=== PATIENT | male | born 1990 | race Caucasian/White ===

== ENCOUNTER 2022-03-09 14:28 | Emergency (ER) | payer SELFPAY ==
[2022-03-09] MEDS ORDERED: dexAMETHasone 10 MG/ML VIAL ONE (14:54)
[2022-03-09] MEDS ORDERED: NA CHLORIDE 0.9% 1,000 ML ONE (14:54)
[2022-03-09 15:04] LABS: Absolute Lymphocytes (CBC) 2.3 K/uL (0.7-4.9); Hematocrit 41.9 % (39.6-49.0); Lymphocytes % 16.9 % (15.3-44.8); MCV 90.6 fL (80-100); MPV 7.8 fL (7.6-11.3); RBC Red Blood Cell Count 4.63 M/uL (4.33-5.43)
[2022-03-09 15:20] LABS: Potassium 3.6 mmol/L (3.5-5.1)
--- NOTE | 2022-03-09 15:51 | RAD REPORT ---
EXAM DESCRIPTION: CT - Soft Tissue Neck W/Contr - 03/09/2022 3:38 pm CLINICAL HISTORY: Neck pain with sore throat COMPARISON: None. TECHNIQUE: Computed axial tomography of the neck was obtained. 50 cc Isovue 300 was administered in travenously. Coronal and sagittal reconstruction was performed. All CT scans are performed using dose optimization technique as appropriate and may include automated exposure control or mA/KV adjustment according to patient size. FINDINGS: The right tonsil is enlarged. A contains a punctate calcification. Ill-defined low to inte rmediate density area within the right tonsil measures 2.5 centimeters. The oropharynx is shifted tow ards the left. The remainder of the pharynx, tongue base, larynx and subglottic trachea appear unremarkable The parotid, submandibular and thyroid glands appear unremarkable. Bilateral enlarged lymph nodes probably reactive in nature. No fluid within the sinuses/mastoids IMPRESSION: Right tonsillitis. 2.5 centimeter low to intermediate density area within the right tons il likely early abscess
--- NOTE | 2022-03-09 16:00 | ER ---
Nurse's Notes [facility] Name: Marlo Brown Age: 31 yrs Sex: Male : 1990 Arrival Date: 03/09/2022 Time: 14:35 Bed Treatment Private MD: Diagnosis: Acute tonsillitis, unspecified-right with early abscess Presentation: 03/09 14:43 Chief complaint: Patient states: I went to urgent care cause I thought my tonsil was hb swollen but they told me to come here cause it wasn't something they can handle there. Coronavirus screen: Vaccine status: Patient reports being unvaccinated. Client denies travel out of the [place] in the last 14 days. At this time, the client does not indicate any symptoms associated with coronavirus-19. Ebola Screen: Patient negative for fever greater than or equal to 101.5 degrees Fahrenheit, and additional compatible Ebola Virus Disease symptoms Patient denies exposure to infectious person. Patient denies travel to an Ebola-affected area in the 21 days before illness onset. Initial Sepsis Screen: Does the patient meet any 2 criteria? No. Patient's initial sepsis screen is negative. Does the patient have a suspected source of infection? No. Patient's initial sepsis screen is negative. Risk Assessment: Do you want to hurt yourself or someone else? Patient reports no desire to harm self or others. Onset of symptoms was March 06, 2022. 14:43 Method Of Arrival: Ambulatory hb 14:43 Acuity: JACOB 3 hb Triage Assessment: 14:47 General: Appears in no apparent distress. uncomfortable, slender, well groomed, well hb developed, well nourished, Behavior is calm, cooperative, appropriate for age. Pain: Complains of pain in throat. Historical: - Allergies: 14:47 No Known Allergies; hb - PMHx: 14:47 Asthma; hb - PSHx: 14:47 None; hb - Immunization history:: Adult Immunizations up to date. - Social history:: Smoking status: Patient/guardian denies using tobacco, but has a distant history of tobacco abuse. Screenin:59 Abuse screen: Denies threats or abuse. Denies injuries from another. Nutritional hb screening: No deficits noted. Tuberculosis screening: No symptoms or risk factors identified. Fall Risk None identified. Assessment: 14:59 General: Appears in no apparent distress. Behavior is calm, cooperative. Pain: Pain hb currently is 8 out of 10 on a pain scale. Neuro: Level of Consciousness is awake, alert, obeys commands, Oriented to person, place, time, situation. Cardiovascular: Patient's skin is warm and dry. Respiratory: Respiratory effort is even, unlabored, Respiratory pattern is regular, symmetrical. GI: No signs and/or symptoms were reported involving the gastrointestinal system. : No signs and/or symptoms were reported regarding the genitourinary system. EENT: Reports sore throat. Derm: Skin is pink, warm \T\ dry. Musculoskeletal: No signs and/or symptoms reported regarding the musculoskeletal system. 15:05 Reassessment: Patient and/or family updated on plan of care and expected duration. Pain hb level reassessed. Patient is alert, oriented x 3, equal unlabored respirations, skin warm/dry/pink. 16:00 Reassessment: Patient and/or family updated on plan of care and expected duration. Pain eh3 level reassessed. Patient is alert, oriented x 3, equal unlabored respirations, skin warm/dry/pink. Vital Signs: 14:43 BP 160 / 78; Pulse 88; Resp 18; Temp 98.6; Pulse Ox 98% ; Weight 102.06 kg; Height 5 hb ft. 10 in. (177.80 cm); Pain 8/10; 16:00 BP 150 / 83; Pulse 92; Resp 18; Pulse Ox 94% on R/A; Pain 5/10; eh3 14:43 Body Mass Index 32.28 (102.06 kg, 177.80 cm) hb ED Course: 14:35 Patient arrived in ED. mr 14:38 Rene Shawistin, [facility]. kb 14:38 Jaret Contreras MD is Attending Physician. kb 14:47 Triage completed. hb 14:47 Arm band placed on right wrist. hb 14:52 Keira Eugene, KRYSTA is Primary Nurse. hb 14:58 Inserted saline lock: 20 gauge in left antecubital area, using aseptic technique. Blood hb collected. 15:00 Patient has correct armband on for positive identification. hb 15:40 CT Soft Tissue Neck W/contr In Process Unspecified. EDMS 15:59 Kiana Mckeon MD is Referral Physician. kb 17:17 No provider procedures requiring assistance completed. IV discontinued, intact, eh3 bleeding controlled, No redness/swelling at site. Pressure dressing applied. Administered Medications: 15:04 Drug: NS 0.9% 1000 ml Route: IV; Rate: 1000 ml; Site: left antecubital; hb 16:30 Follow up: IV Status: Completed infusion; IV Intake: 1000ml eh3 15:04 Drug: Decadron - Dexamethasone 10 mg Route: IVP; Site: left antecubital; hb 16:52 Follow up: Response: Pain is decreased eh3 16:52 Drug: Clindamycin 900 mg Route: IVPB; Infused Over: 30 mins; Site: left antecubital; eh3 17:08 Follow up: IV Status: Completed infusion; IV Intake: 50ml eh3 17:08 Drug: Rocephin (cefTRIAXone) 1 grams Route: IV; Rate: calculated rate; Site: left eh3 antecubital; 17:09 Follow up: Response: Vomiting increased; IV Status: Completed infusion; IV Intake: 10ml eh3 Medication: 15:00 VIS not applicable for this client. hb Intake: 16:30 IV: 1000ml; Total: 1000ml. eh3 17:08 IV: 50ml; Total: 1050ml. eh3 17:09 IV: 10ml; Total: 1060ml. eh3 Outcome: 15:59 Discharge ordered by . kb 17:17 Discharged to home ambulatory, with significant other. eh3 17:17 Condition: stable 17:17 Discharge instructions given to patient, significant other, Instructed on discharge instructions, follow up and referral plans. medication usage, Demonstrated understanding of instructions, follow-up care, medications, Prescriptions given X 1. 17:17 Patient left the ED. eh3 Signatures: Dispatcher [employer] EDWA Erika Shaw, EDD SANTACRUZ-Zenon Pachecoa Alisia mr Keira Eugene RN RN hb Hall, Erin, RN RN eh3 Corrections: (The following items were deleted from the chart) 14:59 14:59 Inserted saline lock: 20 gauge in left antecubital area, using aseptic technique. hb Blood collected. hb
--- NOTE | 2022-03-09 16:00 | EDPHYS ---
Physician Documentation [facility] Name: Marlo Brown Age: 31 yrs Sex: Male : 1990 Arrival Date: 03/09/2022 Time: 14:35 Bed Treatment Private MD: WING Physician Jaret Contreras HPI: 03/09 16:18 This 31 yrs old Male presents to ER via Ambulatory with complaints of Swollen tonsils. kb 16:18 The patient presents with sore throat. The patient describes throat pain as constant. kb Onset: The symptoms/episode began/occurred 6 day(s) ago. Severity of symptoms: At their worst the symptoms were moderate, in the emergency department the symptoms are unchanged. Modifying factors: The symptoms are alleviated by nothing, the symptoms are aggravated by swallowing, Patient's oral intake status: limited fluid intake, limited food intake. Associated signs and symptoms: Pertinent positives: Sore throat. The patient has not experienced similar symptoms in the past. The patient has not recently seen a physician. Historical: - Allergies: 14:47 No Known Allergies; hb - PMHx: 14:47 Asthma; hb - PSHx: 14:47 None; hb - Immunization history:: Adult Immunizations up to date. - Social history:: Smoking status: Patient/guardian denies using tobacco, but has a distant history of tobacco abuse. ROS: 16:17 Constitutional: Negative for fever, chills, and weight loss. kb 16:17 ENT: Positive for sore throat. 16:17 All other systems are negative. Exam: 16:17 Constitutional: This is a well developed, well nourished patient who is awake, alert, kb and in no acute distress. Head/Face: Normocephalic, atraumatic. Cardiovascular: Regular rate and rhythm with a normal S1 and S2. No gallops, murmurs, or rubs. No pulse deficits. Respiratory: Respirations even and unlabored. No increased work of breathing. Talking in full sentences Abdomen/GI: Soft, non-tender. No distention Skin: Warm, dry with normal turgor. Normal color. MS/ Extremity: Pulses equal, no cyanosis. Neurovascular intact. Full, normal range of motion. Neuro: Awake and alert, GCS 15, oriented to person, place, time, and situation. Moves all extremities. Normal gait. Psych: Awake, alert, with orientation to person, place and time. Behavior, mood, and affect are within normal limits. 16:17 ENT: Posterior pharynx: Airway: normal, Tonsils: enlarged on the right, bilaterally enlarged, with erythema, Uvula: normal, swelling, that is moderate, erythema, that is marked. Vital Signs: 14:43 BP 160 / 78; Pulse 88; Resp 18; Temp 98.6; Pulse Ox 98% ; Weight 102.06 kg; Height 5 hb ft. 10 in. (177.80 cm); Pain 8/10; 16:00 BP 150 / 83; Pulse 92; Resp 18; Pulse Ox 94% on R/A; Pain 5/10; eh3 14:43 Body Mass Index 32.28 (102.06 kg, 177.80 cm) hb MDM: 14:47 Patient medically screened. kb 15:56 Data reviewed: vital signs, nurses notes. Data interpreted: Pulse oximetry: on room air kb is 98 %. Interpretation: normal. Counseling: I had a detailed discussion with the patient and/or guardian regarding: the historical points, exam findings, and any diagnostic results supporting the discharge/admit diagnosis, lab results, radiology results, the need for outpatient follow up, an ENT specialist, to return to the emergency department if symptoms worsen or persist or if there are any questions or concerns that arise at home. Physician consultation: Kiana Mckeon MD was contacted at 15:57, regarding consult, patient's condition, and will see patient in office, Recommends decadron 10mg IV, clindamycin 900mg IV and rocephin 1gm IV now and outpatient follow up. If symptoms worsen and pt has to return to ED over the weekend she will be happy to come in to see pt. Otherwise she will see him in clinic next week. 16:14 ED course: Pt given strict return precautions. Verbal understanding received. . kb 03/09 14:48 Order name: CBC with Diff; Complete Time: 15:07 kb 03/09 14:48 Order name: Basic Metabolic Panel; Complete Time: 15:24 kb 03/09 14:48 Order name: CT Soft Tissue Neck W/contr; Complete Time: 15:52 kb 03/09 14:48 Order name: IV Start; Complete Time: 14:59 kb Administered Medications: 15:04 Drug: NS 0.9% 1000 ml Route: IV; Rate: 1000 ml; Site: left antecubital; hb 16:30 Follow up: IV Status: Completed infusion; IV Intake: 1000ml [facility] 15:04 Drug: Decadron - Dexamethasone 10 mg Route: IVP; Site: left antecubital; hb 16:52 Follow up: Response: Pain is decreased 3 16:52 Drug: Clindamycin 900 mg Route: IVPB; Infused Over: 30 mins; Site: left antecubital; [facility] 17:08 Follow up: IV Status: Completed infusion; IV Intake: 50ml 3 17:08 Drug: Rocephin (cefTRIAXone) 1 grams Route: IV; Rate: calculated rate; Site: left 3 antecubital; 17:09 Follow up: Response: Vomiting increased; IV Status: Completed infusion; IV Intake: 10ml 3 Disposition Summary: 03/09/22 15:59 Discharge Ordered Location: Home kb Condition: Stable kb Diagnosis - Acute tonsillitis, unspecified - right with early abscess kb Followup: kb - With: Emergency Department - When: As needed - Reason: Worsening of condition Followup: kb - With: Private Physician - When: 2 - 3 days - Reason: Recheck today's complaints, Continuance of care, Re-evaluation by your physician Followup: kb - With: Kiana Mckeon MD - When: 2 - 3 days - Reason: Recheck today's complaints Discharge Instructions: - Discharge Summary Sheet kb - Tonsillitis, [id number] kb Forms: - Medication Reconciliation Form kb - Thank You Letter kb - Antibiotic Education kb - Prescription Opioid Use kb Prescriptions: - Augmentin 875-125 mg Oral Tablet - take 1 tablet by ORAL route every 12 hours for 10 days; 20 tablet; Refills: 0, kb Product Selection Permitted Addendum: 03/14/2022 04:00 Co-signature as Attending Physician, Jaret Contreras MD I agree with the assessment and c renner plan of care. Signatures: Dispatcher [employer] Erika Jasso, RACING SECRETARY-C RACING SECRETARY-Jaret Corral MD MD cha Baxter, Heather, RN RN Anastasiia Isidro RN RN 3 Corrections: (The following items were deleted from the chart) 03/09 16:17 15:56 Physician consultation: Kiana Mckeon MD was contacted at 15:57, regarding kb consult, patient's condition, and will see patient in office, kb
[2022-03-09] MEDS ORDERED: NA CHLORIDE 0.9% 0 ML IV ONE (16:29)
[2022-03-09] MEDS ORDERED: CEFTRIAXONE 1000 MG/VIAL ONE (16:29)
[2022-03-09] MEDS ORDERED: CLINDAMYCIN 900MG/D5W 900 MG/50 ML IVPB IV ONE (16:29)
[2022-03-09 17:38] VITALS: TEMP 98.6
[2022-03-09 17:44] VITALS: BP 150/83; O2SAT 94
== END 2022-03-09 17:17 | disposition home or self-care (01) ==
LOC: ER 14:28
DX: J03.90 Acute tonsillitis, unspecified (principal)
CPT/HCPCS: 36415; 70491; 80048; 85025; 96361; 96365; 96375; 99284; J1100; J7030; Q9967